=== PATIENT | male | born 1970 | race Caucasian/White ===

== ENCOUNTER → 2019-06-09 11:07 | Outpatient (CLI) | payer OTHER, SELFPAY ==
--- NOTE | 2019-06-09 | DI.MRI.S_ITS ---
PROCEDURE: MR ELBOW LT W CON INDICATIONS: PAIN IN LEFT LOWER LEG BURSITIS OF LEFT ELBOW TECHNIQUE: Noncontrast coronal proton density fast spin echo and T2 fast spin echo with fat saturation, axial and sagittal T1 spin echo and T2 fast spin echo with fat saturation through the elbow. COMPARISON: None. FINDINGS: Image quality: Diagnostic. Lateral structures: The lateral ulnar collateral ligament and radial collateral ligament both appear intact. Mild increased signal is evident involving the origin of the common extensor tendon without significant tearing. Medial structures: The ulnar collateral ligament appears intact. The overlying common flexor tendon appears normal. The ulnar nerve appears normal in size and signal within the cubital tunnel. Anterior structures: The biceps and brachialis tendons both appear intact as they insert onto the proximal radius and ulna, respectively. No bicipitoradial bursal fluid. The median and radial neurovascular bundles appear normal; no focal muscle atrophy to suggest nerve impingement. Posterior structures: The distal aspect of the triceps tendon demonstrates slight increased signal without significant tearing. There is enlargement of fluid identified within the olecranon bursa, which is noted to be distended and measures up to approximately 4.8 x 1.7 x 2.4 cm. Additional edema within the adjacent soft tissues is present. Bones and joint: No acute fracture, dislocation, or suspicious osseous lesion is identified involving the osseous structures of the elbow. No significant degenerative changes of the elbow are appreciated. There is no elbow joint effusion. No osteochondral defects are evident. IMPRESSION: 1. Large amount of fluid within the olecranon bursa suggestive of bursitis. Clinical correlation to exclude superimposed infection is recommended. 2. Mild distal triceps tendinopathy without significant tearing. 3. Minimal tendinopathy involving the common extensor tendon origin. Dictated by: Garrett Hsieh M.D. on 06/09/2019 at 16:40 Approved by: Garrett Hsieh M.D. on 06/09/2019 at 16:42
--- NOTE | 2019-06-09 | DI.MRI.S_ITS ---
PROCEDURE: MR LOWER LEG LT WO CON COMPARISON: [facility], CR, XR FOOT 3VW LT, 06/14/2016, 15:04. INDICATIONS: PAIN IN LEFT LOWER LEG BURSITIS OF LEFT ELBOW TECHNIQUE: Multiplanar, multisequence MR imaging of the left lower leg was performed without intravenous contrast. FINDINGS: Bones: No acute fracture, dislocation, or suspicious osseous lesion is identified involving the osseous structures of the left lower leg. Please note that evaluation of the knee and ankle joints is not adequate on this examination. However, no obvious significant degenerative changes are appreciated. There is at least a small knee joint effusion with an associated Roberts's cyst. Mild edema about the Roberts's cyst is noted. Soft tissues: Mild pretibial subcutaneous edema is identified along the mid aspect of the left lower leg. No soft tissue masses or drainable fluid collections are identified. No significant muscle edema or atrophy is evident involving the left lower leg. Please note that the ligamentous and tendinous structures of the knee and ankle are not adequately evaluated on this examination related to the larger [id number]. However, there does appear to be thickening and increased signal involving the distal aspect of the tibialis posterior tendon at the level of the navicular. IMPRESSION: 1. Minimal pretibial edema could potentially represent burrows splints. There is no fracture or suspicious osseous lesion. 2. Small knee joint effusion with an associated leaking Roberts cyst. 3. Probable distal tibialis posterior tendinopathy. Dictated by: Garrett Hsieh M.D. on 06/09/2019 at 16:25 Approved by: Garrett Hsieh M.D. on 06/09/2019 at 16:29
== END ==
PROVIDERS: Visit Provider Student in an Organized Health Care Education/Training Program
DX: M79.662 Pain in left lower leg (principal); M25.462 Effusion, left knee; M66.0 Rupture of popliteal cyst; M71.522 Other bursitis, not elsewhere classified, left elbow; M67.922 Unspecified disorder of synovium and tendon, left upper arm
CPT/HCPCS: 73221; 73718